=== PATIENT | female | born 1985 | race Caucasian/White ===

== ENCOUNTER 2019-09-21 11:30 | Emergency (ER) | payer SELFPAY ==
--- NOTE | ~2019-09-21 | XR_ITS ---
EXAMINATION: XR chest 1V portable DATE: 09/21/2019 12:35 INDICATION: Left chest pain. TECHNIQUE: A single frontal view of the chest was obtained. COMPARISON: None. FINDINGS: The chest demonstrates clear lungs without pneumonia, pleural effusion, or pneumothorax. Th e heart size is normal. IMPRESSION: 1. No acute cardiopulmonary disease. Reviewed, dictated and finalized at location A.
[2019-09-21 11:37] VITALS: BP 147/103; PULSE 97; RESP 20; TEMP 36.9; O2SAT 99
[2019-09-21] MEDS: KETOROLAC 30 MG/ML VIAL (*BKC) IV PUSH (12:04)
--- NOTE | 2019-09-21 12:07 | ED.GENADULT ---
HPI - General Adult General Chief complaint: Chest Pain <Cayetano Ryan PA-C - Last Filed: 09/21/19 12:45> Stated complaint: CP <Cayetano Ryan PA-C - Last Filed: 09/21/19 12:45> Time Seen by Provider: 09/21/19 11:32 <SANDIE Whitley Last Filed: 09/21/19 12:45> Source: patient <Cayetano Ryan PA-C - Last Filed: 09/21/19 12:45> Mode of arrival: ambulatory <Cayetano Ryan PA-C - Last Filed: 09/21/19 12:45> Limitations: no limitations <Cayetano Ryan PA-C - Last Filed: 09/21/19 12:45> History of Present Illness HPI narrative: Patient is a 34-year-old female who ambulates to emergency department for evaluation chest pain to the left chest that is been present for 1 year occurs daily is worse with activity movement patient has not been seen for this complaint patient denies URI symptoms or other complaints and on arrival is in the room in no distress. Patient has not taken anything for her symptoms . Patient has passing through town. Patient is currently had a back to her home in [place] <Cayetano Ryan PA-C - Last Filed: 09/21/19 12:45> Related Data Home medications: Home Medications Medication Instructions Recorded Confirmed No Home Medications 09/21/19 09/21/19 <Cayetano Ryan PA-C - Last Filed: 09/21/19 12:45> Allergies/adverse reactions: Allergies Allergy/AdvReac Type Severity Reaction Status Date / Time No Known Allergies Allergy Verified 09/21/19 12:17 <Cayetano Ryan PA-C - Last Filed: 09/21/19 12:45> Review of Systems Review of Systems: All systems reviewed & are unremarkable except as noted in HPI and below <Cayetano Ryan PA-C - Last Filed: 09/21/19 12:45> PMFSH Surgical History Surgical History: Surgical History (Updated 09/21/19 @ 12:08 by Cayetano Ryan PA-C) History of orthopedic surgery <SANDIE Whitley Last Filed: 09/21/19 12:45> Exam Narrative: Exam Narrative: GENERAL: Well-appearing, well-nourished, and in no acute distress. HEAD: Normocephalic, atraumatic. EYES: PERRLA and EOMI. ENT: Nares clear, no rhinorrhea or epistaxis. Mucous membranes moist. CHEST: Clear to auscultation. No respiratory distress. No wheezes rales or rhonchi. Reproducible left chest wall tenderness to palpation HEART: Regular rate and rhythm. No murmur heard. Normal peripheral pulses. ABDOMEN: Soft, nontender, nondistended EXTREMITIES: Normal range of motion. No edema. SKIN: Warm, dry, no rash. NEURO: No focal deficits. Alert and oriented x3. Cranial nerves II through XII grossly intact PSYCH: Normal mood and affect. <SANDIE Whitley Last Filed: 09/21/19 12:45> Course Course Emergency Course: Patient in the room aware of case findings treatment plan and diagnosis agreeing to follow-up as directed with primary care upon returning home <SANDIE Whitley Last Filed: 09/21/19 12:45> Vital Signs Vital signs: Vital Signs Temperature 36.9 C 09/21/19 11:37 Pulse Rate 97 09/21/19 11:37 Respiratory Rate 20 09/21/19 11:37 Blood Pressure 147/103 H 09/21/19 11:37 Pulse Oximetry 99 09/21/19 11:37 Temperature 36.9 C 09/21/19 11:37 Pulse Rate 80 09/21/19 12:54 Respiratory Rate 20 09/21/19 12:54 Blood Pressure 119/76 09/21/19 12:54 Pulse Oximetry 99 09/21/19 12:54 <SANDIE Whitley Last Filed: 09/21/19 12:45> Vital Signs Temperature 36.9 C 09/21/19 11:37 Pulse Rate 97 09/21/19 11:37 Respiratory Rate 20 09/21/19 11:37 Blood Pressure 147/103 H 09/21/19 11:37 Pulse Oximetry 99 09/21/19 11:37 Temperature 36.9 C 09/21/19 11:37 Pulse Rate 80 09/21/19 12:54 Respiratory Rate 20 09/21/19 12:54 Blood Pressure 119/76 09/21/19 12:54 Pulse Oximetry 99 09/21/19 12:54 <Mary Soares MD - Last Filed: 09/21/19 14:28> Medical Decision Making MDM Narrative Medical decision making narrative:
[2019-09-21 12:11] LABS: Basophils Absolute Auto 0.1 K/mm3 (0.0-0.1); Basophils Percent Auto 1.8 % (0.2-1.2); Eosinophils Absolute Auto 0.1 K/mm3 (0-0.3); Eosinophils Percent Auto 1.4 % (0-4.4); Hematocrit 40.2 % (37.0-47.0); Hemoglobin 13.2 g/dL (12.0-15.0); Immature Granulocyte Absolute 0.03 K/mm3 (0.00-0.031); Immature Granulocyte Percent A 0.4 % (0-0.5); Lymphocytes Absolute Auto 1.61 K/mm3 (0.9-3.2); Lymphocytes Percent Auto 20.3 % (18.3-44.2); Mean Corpuscular HGB Conc 32.8 g/dl (32-36); Mean Corpuscular Hemoglobin 31.4 pg (26-34); Mean Corpuscular Volume 95.7 fl (80-100); Mean Platelet Volume 9.9 fl (7.4-10.4); Monocytes Absolute Auto 0.7 K/mm3 (0.1-0.6); Monocytes Percent Auto 8.3 % (2.6-8.5); Neutrophils Absolute Auto 5.4 K/mm3 (1.3-6.7); Neutrophils Percent Auto 67.8 % (45.5-73.1); Platelet Count Result 288 k/mm3 (150-375); Red Cell Distribution Width 13.8 % (11.5-14.5); White Blood Count 7.9 K/mm3 (4.5-10.0)
[2019-09-21 12:20] LABS: Blood Urea Nitrogen 5 mg/dL (7-17); Calcium 8.5 mg/dL (8.4-10.2); Carbon Dioxide 23 mmol/L (22-30); Chloride 101 mmol/L (98-107); Estimated CRCL calculation 97 ml/min; Estimated Glomerular Filt Rate > 60; Glucose 95 mg/dL (65-105); Potassium 3.5 mmol/L (3.4-5.0); Sodium 135 mmol/L (137-145)
[2019-09-21 12:32] LABS: Troponin I < 0.012 ng/mL (0.000-0.034)
[2019-09-21 12:54] VITALS: BP 119/76; PULSE 80; RESP 20; O2SAT 99
--- NOTE | 2019-09-21 14:33 | ECG_ITS ---
Measurements Intervals [place] Rate: 93 P: 68 OK: 154 QRS: 59 QRSD: 92 T: 55 QT: 324 QTc: 403 Interpretive Statements SINUS RHYTHM INCOMPLETE RIGHT BUNDLE BRANCH BLOCK BORDERLINE ECG Electronically Signed On 09-21-2019 14:38:32 CDT by Jaron Quinones D.O.
== END 2019-09-21 12:56 | disposition home or self-care (01) ==
PROVIDERS: Emergency Medicine Emergency Medical Services; Emergency Provider Emergency Medicine
DX: R07.9 Chest pain, unspecified (principal); I45.10 Unspecified right bundle-branch block
CPT/HCPCS: 36415; 71045; 80048; 84484; 85025; 93005; 96374; 99284; J1885